=== PATIENT | male | born 2000 | race Caucasian/White ===

== ENCOUNTER 2021-10-04 14:08 | Outpatient (CLI) | payer OTHER | END 2021-10-04 14:09 | disposition home or self-care (01) | LOC: BICULT 14:08 | PROVIDERS: ATTEND Urology | DX: N31.9 Neuromuscular dysfunction of bladder, unspecified (principal); N13.30 Unspecified hydronephrosis; N32.89 Other specified disorders of bladder | CPT/HCPCS: 76770 ==